=== PATIENT | female | born 2000 | race Caucasian/White ===

== ENCOUNTER 2021-09-03 22:32 | Emergency (ER) | payer BC ==
[~2021-09-03] VITALS: Ht 160 cm; Wt 57.5 kg
[2021-09-03] MEDS ORDERED: diphenhydrAMINE 50 MG/ML INJ (BENADRYL) IV STA (22:56)
--- NOTE | 2021-09-03 22:59 | ED Integumentary General ---
General Chief Complaint: Allergic Reaction Stated Complaint: HIVES ALL OVER/SWOLLEN THROAT Nursing Triage Note: PATIENT STATES THAT SHE STARTED NOTICING HIVES ON HER RIGHT ARM AT 1999 WHEN SHE WAS CARVING A PUMPKIN. SINCE THEN IT HAS GOTTEN WORSE AND ALSO DEVELOPED ON HER LEFT ARM AND ALSO BILAT LOWER EXTREM. SHE DID TAKE BENADRYL X1 AT 2149. SHE DENIES ANY PREVIOUS ALLERGIC REACTIONS. 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 JAMA Allergies and Home Medications Allergies Coded Allergies: No Known Drug Allergies (Unverified , 09/03/21) Patient Home Medication List Home Medication List Reviewed: Yes Prednisone (Prednisone) 20 Mg Tab, 40 MG PO DAILY Prescribed by: RANDALL LEAVITT on 09/03/21 6857 Review of Systems Review of Systems Constitutional: no symptoms reported EENTM: see HPI; No hoarseness, No mouth swelling, No nose congestion, No throat pain Respiratory: no symptoms reported; No cough, No short of breath, No stridor, No wheezing Cardiovascular: no symptoms reported; No chest pain Gastrointestinal: no symptoms reported; No abdominal pain, No nausea, No vomiting Genitourinary: no symptoms reported Musculoskeletal: no symptoms reported Skin: see HPI, pruritus, rash Psychiatric/Neurological: No Symptoms Reported Endocrine: No Symptoms Reported Hematologic/Lymphatic: No Symptoms Reported Past Zvazoog-Qtgkau-Fxtqws Hx Patient Social History Tobacco Use?: No Substance use?: No Alcohol Use?: Yes Alcohol Frequency: Once in a while Past Medical History Surgeries: No Respiratory: No Cardiac: No Neurological: No Reproductive Disorders: No Genitourinary: No Gastrointestinal: No Musculoskeletal: No Endocrine: No HEENT: No Cancer: No Psychosocial: No Integumentary: No Blood Disorders: No Physical Exam Vital Signs Vital Signs - First Documented 09/03/21 09/04/21 22:41 00:30 Temp 36.5 Pulse 90 Resp 20 B/P (MAP) 120/88 (99) Pulse Ox 97 O2 Delivery Room Air Capillary Refill : Less Than 3 Seconds General Appearance: WD/WN, no apparent distress HEENT: PERRL/EOMI, normal ENT inspection, TMs normal, pharynx normal, other (NO SWELLING TO LIPS, TONGUE OR ORAL MUCOSA; VOICE NORMAL) Neck: non-tender, full range of motion, supple, normal inspection Cardiovascular: normal peripheral pulses, regular rate, rhythm, no edema, no JVD, no murmur Respiratory: normal breath sounds, no respiratory distress Gastrointestinal: non tender, soft Back: normal inspection Extremities: normal inspection, no pedal edema, normal capillary refill Neurologic/Psychiatric: kosher inspector II-XII nml as tested, no motor/sensory deficits, alert, normal mood/affect, oriented x 3 Skin: normal color, warm/dry, rash (PATCHY URTICARIA OVER ENTIRE BODY, INCLUDING FACE, SCALP, PALMS AND SOLES) Progress/Results/Core Measures Results/Orders My Orders Orders - RANDALL LEAVITT DO Ed Iv/Invasive Line Start (09/03/21 22:56) Monitor-Rhythm Ecg Trace Only (09/03/21 22:56) Diphenhydramine Injection (Benadryl Inje (09/03/21 22:56) Famotidine Injection (Pepcid Injection) (09/03/21 23:00) Methylprednisolone Sod Succ (Solu-Medrol (09/03/21 23:00) Medications Given in ED Vital Signs/I&O 09/03/21 09/04/21 22:41 00:30 Temp 36.5 36.7 Pulse 90 86 Resp 20 18 B/P (MAP) 120/88 (99) 122/67 Pulse Ox 97 O2 Delivery Room Air Blood Pressure Mean: 99 Progress Progress Note : Progress Note GIVEN BENADRYL, SOLU-MEDROL AND PEPCID WITH MUCH IMPROVEMENT IN SYMPTOMS Departure Impression Primary Impression: Hives of unknown origin Disposition: HOME, SELF-CARE Condition: Improved Departure-Patient Inst. Decision time for Depature: 00:15 Referrals: RANDALL JAMA MD Patient Instructions: Hives (DC) Add. Discharge Instructions: LOTS OF CLEAR LIQUIDS AVOID ANY NEW FOODS, DRINKS, PRODUCTS, MEDICATIONS, ETC. KEEP DIARY OF EVERYTHING YOU INGESTED TODAY--FOODS, DRINKS, MEDICATIONS, ETC. BENADRYL 50 MG AT NIGHT, CLARITIN 10 MG IN AM NEEDED FOR RASH AND ITCHING FOLLOW UP WITH YOUR DR ON SUNDAY IF NO BETTER, RETURN TO ER IF WORSE All discharge instructions reviewed with patient and/or family. Voiced understanding. Scripts Prednisone (Prednisone) 20 Mg Tab 40 MG PO DAILY, #6 TAB 0 Refills Prov: RANDALL LEAVITT DO 09/03/21 RANDALL LEAVITT DO Sep 03, 2021 22:59
[2021-09-03] MEDS ORDERED: FAMOTIDINE 20MG/2ML IV (PEPCID) IVP ONE (23:00)
[2021-09-03] MEDS ORDERED: methylPREDNISolone 125 MG (Solu-MEDROL) VIAL IVP ONE (23:00)
[2021-09-03] MEDS ORDERED: PRD20T PO (23:03)
[2021-09-04 00:30] VITALS: BP 122/67
== END 2021-09-04 00:36 | disposition home or self-care (01) ==
LOC: EDUNIT# 22:32 → ER 22:35
DX: L50.9 Urticaria, unspecified (principal)
CPT/HCPCS: 93041; 96374; 96375

== ENCOUNTER 2021-09-04 13:28 | Emergency (ER) | payer BC ==
[~2021-09-04] VITALS: Ht 160 cm; Wt 56.8 kg
[~2021-09-04 13:28] MED LIST: PRD20T PO
--- NOTE | 2021-09-04 14:07 | ED Integumentary General ---
General Chief Complaint: Skin/Wound Problems Stated Complaint: RASH Nursing Triage Note: AMB TO ED WITH MOTHER WAS SEEN IN ED YESTERDAY, WAS GIVEN RASH DID NOT PICK RX UP YET THOUGHT RASH WAS WORSE SO CAME BACK TO ER. Source: patient Exam Limitations: no limitations History of Present Illness Date Seen by Provider: Sep 04, 2021 Time Seen by Provider: 14:00 Initial Comments To ER with reports of a rash. Began yesterday. It is all over and it is itchy. No cough no shortness of breath. She finished amoxicillin on 08/31/2021 for an ear infection. She has had no sore throat. No fevers or chills. Her niece or nephew or her younger relation had coyh-mkmu-isd-mouth last week. Patient herself denies any sore throat. Seen here last night and given a prescription for prednisone for hives but upon awakening this morning noticed that the rash had spread significantly to new locations which concerned her. She denies any body aches fevers or chills prior to the onset of this rash. Timing/Duration: just prior to arrival Severity: moderate Location: generalized Associated Symptoms: denies symptoms, rash Allergies and Home Medications Allergies Coded Allergies: No Known Drug Allergies (Unverified , 09/03/21) Patient Home Medication List Home Medication List Reviewed: Yes Prednisone (Prednisone) 20 Mg Tab, 40 MG PO DAILY Prescribed by: RANDALL LEAVITT on 09/03/21 5606 Review of Systems Review of Systems Constitutional: see HPI EENTM: see HPI Respiratory: no symptoms reported Cardiovascular: no symptoms reported Genitourinary: no symptoms reported Musculoskeletal: no symptoms reported Skin: see HPI Psychiatric/Neurological: No Symptoms Reported Endocrine: No Symptoms Reported (None they can have that fine rash to) Past Mtzdkhk-Jugryb-Adlztn Hx Patient Social History Tobacco Use?: Yes Substance use?: No Alcohol Use?: Yes Alcohol Frequency: Rarely Pt feels they are or have been: No Immunizations Up To Date First/Initial COVID19 Vaccinat: January COVID19 Vaccination [place]ora: FEBRUARY Physical Exam Vital Signs Vital Signs - First Documented 09/04/21 13:40 Temp 36.8 Pulse 100 Resp 18 B/P (MAP) 122/73 (89) Pulse Ox 99 O2 Delivery Room Air Capillary Refill : Less Than 3 Seconds General Appearance: WD/WN, no apparent distress, other (There are no vesicles or bulla noted) HEENT: PERRL/EOMI, normal ENT inspection, TMs normal Neck: lymphadenopathy (R), lymphadenopathy (L) Cardiovascular: regular rate, rhythm, no murmur Respiratory: normal breath sounds, no respiratory distress, no accessory muscle use Gastrointestinal: normal bowel sounds, non tender, soft Neurologic/Psychiatric: alert, normal mood/affect, oriented x 3 Skin: normal color, warm/dry Skin Problem Character: other (There is a diffuse maculopapular rash deeply red to the anterior and posterior legs sparing the lateral and medial aspects. This is also present on the palms of the hands and the soles of the feet. There are perioral lesions but nothing within the mouth is seen nor is there any sore throat. She also has this rash to her torso and face.) Progress/Results/Core Measures Results/Orders Vital Signs/I&O 09/04/21 13:40 Temp 36.8 Pulse 100 Resp 18 B/P (MAP) 122/73 (89) Pulse Ox 99 O2 Delivery Room Air Blood Pressure Mean: 89 Departure Communication (Admissions) Dr. Hayes is seen the patient and agrees with plan of care. Impression Primary Impression: Hand, foot and mouth disease (HFMD) Disposition: 01 HOME, SELF-CARE Condition: Stable Departure-Patient Inst. Decision time for Depature: 14:03 Referrals: RANDALL JAMA MD (PCP/Family) Primary Care Physician Patient Instructions: Hand, Foot, and Mouth Disease (DC) Add. Discharge Instructions: 1. 1. This rash could be related to cpul-kljy-nxa-mouth disease brought on by a virus and usually lasts 7 to 10 days. It can be associated with sores in the mouth, fever, malaise. This could also be a delayed reaction to the amoxicillin that you finished last week. Either way, Benadryl as needed for itching, the prednisone will not necessarily be helpful at this point. Return to ER for any concerns. Follow-up with your doctor next week. All discharge instructions reviewed with patient and/or family. Voiced understanding. Work/School Note: Work Release Form Date Seen in the Emergency Department: Sep 04, 2021 Return to Work: Sep 10, 2021 RICH ROCHE APRN Sep 04, 2021 14:07
[2021-09-04 14:12] VITALS: BP 122/73
== END 2021-09-04 14:12 | disposition home or self-care (01) ==
LOC: EDUNIT# 13:28 → ER 13:29
DX: B08.4 Enteroviral vesicular stomatitis with exanthem (principal); Z72.0 Tobacco use
CPT/HCPCS: 99281